=== PATIENT | female | born 1965 | race Caucasian/White ===

== ENCOUNTER 2018-11-13 13:40 | Emergency (ER) | payer OTHER ==
[2018-11-13 15:15] VITALS: BP 94/66
[2018-11-13 15:41] LABS: Influenza A Molecular POSITIVE (Negative)
--- NOTE | 2018-11-13 15:59 | UC ---
Respiratory Complaint HPI - HPI Summary HPI Summary: Ms. Storm presents with sore throat and chest congestion since Sunday (today is Sun). She was in bed for the last two days with generalized arthralgias and myalgias. - History of Current Complaint Chief Complaint: UCRespiratory Stated Complaint: CONGESTITION Time Seen by Provider: 11/13/18 15:11 Hx Obtained From: Patient Hx Last Menstrual Period: uterine ablation ?: Yes Onset/Duration: Gradual Onset Timing: Constant Severity Initially: Moderate Severity Currently: Moderate Pain Intensity: 7 Character: Cough: Nonproductive Associated Signs And Symptoms: Positive: Chills, Nasal Congestion, Sinus Discomfort - Risk Factors Pulmonary Embolism Risk Factors: Negative Cardiac Risk Factors: Negative - Allergies/Home Medications Allergies/Adverse Reactions: Allergies Allergy/AdvReac Type Severity Reaction Status Date / Time seasonal Allergy Congestion Uncoded 11/13/18 15:08 Home Medications: Home Medications Acetaminophen [Tylenol] 350 mg PO Q8HR PRN 11/13/18 [History Confirmed 11/13/18] Ibuprofen 600 mg PO Q8HR PRN 11/13/18 [History Confirmed 11/13/18] PMH/Surg Hx/FS Hx/Imm Hx Previously Healthy: Yes - Surgical History Surgical History: Yes Surgery Procedure, Year, and Place: B/L BREAST AUGMENTATION--1999. C-SECT-2005 & TUBAL LIGATION. uterine ablation. OVARIAN CYSTS REMOVED Xs 2 THEN L OOPHRECTOMY. Rt KNEE SURGERY - Family History Known Family History: Positive: Other - sister has mild asthma, + allergies - Social History Alcohol Use: Occasionally Alcohol Amount: a few times a week Substance Use Type: Marijuana Substance Use Comment - Amount & Last Used: occasionally Smoking Status (MU): Never Smoked Tobacco - Immunization History Most Recent Tetanus Shot: UNKNOWN Review of Systems All Other Systems Reviewed And Are Negative: Yes Constitutional: Positive: Chills Skin: Positive: Negative Eyes: Positive: Negative ENT: Positive: Sore Throat, Nasal Discharge, Sinus Congestion Respiratory: Positive: Cough Cardiovascular: Positive: Negative Gastrointestinal: Positive: Negative Genitourinary: Positive: Negative Physical Exam - Summary Physical Exam Summary: She was nontoxic in appearance with stable vitals. Triage Information Reviewed: Yes Appearance: Well-Appearing Vital Signs: Initial Vital Signs Temp 99.3 F 11/13/18 15:07 Pulse 67 11/13/18 15:07 Resp 18 11/13/18 15:07 BP 94/66 11/13/18 15:07 Pulse Ox 98 11/13/18 15:07 Vital Signs Reviewed: Yes Eye Exam: Normal ENT: Positive: Pharyngeal erythema, Nasal congestion, Nasal drainage Neck exam: Normal Neck: Positive: Supple, Nontender, No Lymphadenopathy Respiratory Exam: Normal Cardiovascular Exam: Normal Abdominal Exam: Normal Respiratory Course/Dx - Course Course Of Treatment: Ms. Storm presented with URI symptoms and was found to be positive for influenza A. She is out of the window for Tamiflu and I will treat her symptomatically. - Differential Dx/Diagnosis Provider Diagnosis: Influenza A Discharge - Sign-Out/Discharge Documenting (check all that apply): Patient Departure All imaging exams completed and their final reports reviewed: No Studies - Discharge Plan Condition: Stable Disposition: HOME Patient Education Materials: Influenza (ED) Forms: *Work Release Referrals: Portia Napier MD [Primary Care Provider] - - Billing Disposition and Condition Condition: STABLE Disposition: Home
== END 2018-11-13 16:19 | disposition home or self-care (01) ==
LOC: UCEAST 13:40
DX: J10.1 Influenza due to other identified influenza virus with other respiratory manifestations (principal); Z91.09 Other allergy status, other than to drugs and biological substances
CPT/HCPCS: 87651; 99212; G0463

== ENCOUNTER 2019-04-24 19:50 | Emergency (ER) | payer OTHER ==
[2019-04-24 20:01] VITALS: BP 124/81
== END 2019-04-24 19:57 | disposition left against medical advice (07) ==
LOC: ED 19:50
DX: S89.92XA Unspecified injury of left lower leg, initial encounter (principal); X58.XXXA Exposure to other specified factors, initial encounter; Y92.9 Unspecified place or not applicable; Z53.21 Procedure and treatment not carried out due to patient leaving prior to being seen by health care provider

== ENCOUNTER 2019-04-24 20:33 | Emergency (ER) | payer OTHER ==
[2019-04-24 20:56] VITALS: BP 118/75
--- NOTE | 2019-04-24 21:36 | UC ---
Knee Pain HPI - HPI Summary HPI Summary: 53-year-old woman comes in with a chief complaint of left knee pain. This started a couple hours ago when she was playing kickball and she twisted her left knee. Had pain right away. Has been unable to bear weight she feels like her knee is unstable. Her knee is swollen. Pain is less when she elevates it does not try to bear any weight. - History of Current Complaint Chief Complaint: UCLowerExtremity Stated Complaint: LEFT KNEE INJURY Time Seen by Provider: 04/24/19 20:51 Hx Last Menstrual Period: post- ablation Pain Intensity: 4 - Allergies/Home Medications Allergies/Adverse Reactions: Allergies Allergy/AdvReac Type Severity Reaction Status Date / Time seasonal Allergy Congestion Uncoded 04/24/19 20:56 PMH/Surg Hx/FS Hx/Imm Hx Previously Healthy: Yes - Surgical History Surgical History: Yes Surgery Procedure, Year, and Place: B/L BREAST AUGMENTATION--1999. C-SECT-2005 & TUBAL LIGATION. uterine ablation. OVARIAN CYSTS REMOVED Xs 2 THEN L OOPHRECTOMY. Rt KNEE SURGERY - Family History Known Family History: Positive: Other - sister has mild asthma, + allergies - Social History Alcohol Use: Occasionally Alcohol Amount: a few times a week Substance Use Type: Marijuana Substance Use Comment - Amount & Last Used: occasionally Smoking Status (MU): Never Smoked Tobacco - Immunization History Most Recent Tetanus Shot: UNKNOWN Review of Systems All Other Systems Reviewed And Are Negative: Yes Constitutional: Positive: Negative Skin: Positive: Negative Eyes: Positive: Negative ENT: Positive: Negative Respiratory: Positive: Negative Cardiovascular: Positive: Negative Gastrointestinal: Positive: Negative Motor: Positive: Other - SEE HPI Neurovascular: Positive: Negative Musculoskeletal: Positive: Other: - SEE HPI Neurological: Positive: Negative Psychological: Positive: Negative Is Patient Immunocompromised?: No Physical Exam Triage Information Reviewed: Yes Appearance: Well-Appearing, Well-Nourished, Pain Distress - MILD WITH ROM LEFT KNEE Vital Signs: Initial Vital Signs Temp 97.6 F 04/24/19 20:52 Pulse 63 04/24/19 20:52 Resp 16 04/24/19 20:52 BP 118/75 04/24/19 20:52 Pulse Ox 98 04/24/19 20:52 Vital Signs Reviewed: Yes Eye Exam: Normal Eyes: Positive: Conjunctiva Clear Neck: Positive: Supple Respiratory: Positive: No respiratory distress Musculoskeletal: Positive: Other: - Left knee has an effusion is tender to palpation. Negative Markos's. Secondary to pain and limited my exam. Neurological: Positive: Alert Psychological: Positive: Age Appropriate Behavior Skin Exam: Normal Knee Pain Course/Dx - Course Course Of Treatment: There is an effusion on the x-ray of the left knee. I did not see any fracture radiologist reading is pending. This was all discussed with the patient. Because the patient's knee feels unstable she was placed in a knee immobilizer and Lino wrap and given crutches. Patient neurovascular intact after placement of the Lino wrap and knee immobilizer. Plan is to follow-up with orthopedics or sports medicine. - Differential Dx/Diagnosis Provider Diagnosis: Effusion of left knee Discharge ED - Sign-Out/Discharge Documenting (check all that apply): Patient Departure All imaging exams completed and their final reports reviewed: No - Discharge Plan Condition: Stable Disposition: HOME Patient Education Materials: Swollen Knee Joint (ED), Knee Pain (ED) Referrals: Patricia Bosch MD [Primary Care Provider] - [facility] [Provider Group] Joanna Pierce MD [Medical Doctor] - Additional Instructions: FOLLOW UP WITH SPORTS MEDICINE OR ORTHOPEDICS. GET RECHECKED SOONER IF YOUR CONDITION WORSENS OR ANY QUESTIONS OR CONCERNS. - Billing Disposition and Condition Condition: STABLE Disposition: Home
--- NOTE | 2019-04-25 09:44 | UC ---
- Progress Note Progress Note: xray reviewed. see new encounter today. pt heading to orthopedic office this am. Course/Dx - Diagnoses Provider Diagnoses: Effusion of left knee Discharge ED - Sign-Out/Discharge Documenting (check all that apply): Post-Discharge Follow Up All imaging exams completed and their final reports reviewed: Yes - Discharge Plan Condition: Stable Disposition: HOME Patient Education Materials: Swollen Knee Joint (ED), Knee Pain (ED) Referrals: [facility] [Provider Group] Patricia Bosch MD [Primary Care Provider] - Joanna Pierce MD [Medical Doctor] - Additional Instructions: FOLLOW UP WITH SPORTS MEDICINE OR ORTHOPEDICS. GET RECHECKED SOONER IF YOUR CONDITION WORSENS OR ANY QUESTIONS OR CONCERNS. - Billing Disposition and Condition Condition: STABLE Disposition: Home
== END 2019-04-24 22:02 | disposition home or self-care (01) ==
LOC: UCEAST 20:33
DX: M25.562 Pain in left knee (principal); M25.462 Effusion, left knee
CPT/HCPCS: 99213; G0463

== ENCOUNTER 2019-04-25 08:27 | Emergency (ER) | payer OTHER ==
[2019-04-25 08:55] VITALS: BP 122/76
--- NOTE | 2019-04-25 09:19 | UC ---
General HPI - HPI Summary HPI Summary: Pt was here last night for L knee pain, s/p injury after playing kickball. Twisted knee, landed wrong. Pain today in knee really bad, all over, including the back of the knee. no distal p/d/w. Unable to bear weight. No other known injury. Took 800mg ibuprofen approx 4am, took 2 acetaminophen approx 1-2am. - History of Current Complaint Chief Complaint: UCLowerExtremity Stated Complaint: KNEE INJURY Time Seen by Provider: 04/25/19 09:17 Hx Obtained From: Patient Hx Last Menstrual Period: post- ablation Pain Intensity: 8 - Allergy/Home Medications Allergies/Adverse Reactions: Allergies Allergy/AdvReac Type Severity Reaction Status Date / Time seasonal Allergy Congestion Uncoded 04/25/19 08:47 Home Medications: Home Medications Acetaminophen [Acetaminophen Extra Strength] 1,000 mg PO ONCE 04/25/19 [History Confirmed 04/25/19] PMH/Surg Hx/FS Hx/Imm Hx Previously Healthy: Yes - Surgical History Surgical History: Yes Surgery Procedure, Year, and Place: B/L BREAST AUGMENTATION--1999. C-SECT-2005 & TUBAL LIGATION. uterine ablation. OVARIAN CYSTS REMOVED Xs 2 THEN L OOPHRECTOMY. Rt KNEE SURGERY - Family History Known Family History: Positive: Other - sister has mild asthma, + allergies - Social History Alcohol Use: Occasionally Alcohol Amount: a few times a week Substance Use Type: None Substance Use Comment - Amount & Last Used: occasionally Smoking Status (MU): Never Smoked Tobacco - Immunization History Most Recent Tetanus Shot: UNKNOWN Review of Systems All Other Systems Reviewed And Are Negative: Yes Constitutional: Positive: Negative Skin: Positive: Other - swelling Eyes: Positive: Negative ENT: Positive: Negative Respiratory: Positive: Negative Cardiovascular: Positive: Negative Gastrointestinal: Positive: Negative Genitourinary: Positive: Negative Motor: Positive: Other - see hpi Neurovascular: Positive: Negative - see hpi Musculoskeletal: Positive: Other: - see hpi Neurological: Positive: Negative Psychological: Positive: Negative Is Patient Immunocompromised?: No Physical Exam Triage Information Reviewed: Yes Appearance: Well-Nourished, Pain Distress Vital Signs: Initial Vital Signs Temp 98.9 F 04/25/19 08:48 Pulse 63 04/25/19 08:48 Resp 18 04/25/19 08:48 BP 122/76 04/25/19 08:48 Pulse Ox 99 09/06/19 08:48 Vital Signs Reviewed: Yes Eye Exam: Normal - grossly nad ENT Exam: Normal - grossly nad Neck exam: Normal - no c/o pain Respiratory Exam: Normal - rr normal, no dyspnea, no tachypnea Cardiovascular Exam: Normal - hr normal, no diaphoretic Abdominal Exam: Normal - benign, sitting up Musculoskeletal Exam: Other - in knee immobilizer. The entire knee is tender, swollen. Calf ok. Neurological Exam: Normal - distal senst + lt LLE Psychological Exam: Normal - conversing esaily and appopriately tearful d/t pain Course/Dx - Course Course Of Treatment: I called the orthopedic office. Dr. Alvarez kindly will see Ms. Storm this morning upon departure from [facility]. I reviewed the xray results from yesterday with pt and parents who are with her. She will remain immobilized, and go directly to orthopedic office. norco x 2 here - Diagnoses Provider Diagnosis: Knee injury Discharge ED - Sign-Out/Discharge Documenting (check all that apply): Patient Departure All imaging exams completed and their final reports reviewed: Yes - Discharge Plan Condition: Stable Disposition: HOME Patient Education Materials: Swollen Knee Joint (ED) Referrals: Maureen Alvarez MD [Medical Doctor] - Patricia Bosch MD [Primary Care Provider] - Additional Instructions: Please go to the Orthopedic office now, Dr. Alvarez. You received two norco 5/325 here in the [facility]. Immobilization recommendations per orthopedist. Follow up with your primary care physician, per routine. - Billing Disposition and Condition Condition: STABLE Disposition: Home
[2019-04-25] MEDS ORDERED: HYDROcodone/ACETAMIN 5-325 MG* 1 TAB PO ONE (09:26)
== END 2019-04-25 09:45 | disposition home or self-care (01) ==
LOC: UCEAST 08:27
DX: S89.92XD Unspecified injury of left lower leg, subsequent encounter (principal); W18.30XD Fall on same level, unspecified, subsequent encounter
CPT/HCPCS: 99212; G0463